=== PATIENT | female | born 1980 | race Caucasian/White ===

== ENCOUNTER → 2017-02-19 08:16 | Day surgery (SDC) | payer BC ==
[~2017-02-19 08:16] MED LIST: Buffered Lidocaine 0.9% SYRIN* 5 ML/SYR SYRINGE INTRADERM ONE; DOXYcycline IV* 100 MG in NS 0.9% 250 ML* 250 ML IVPB ONE
[2017-02-19 09:20] VITALS: BP 119/72
--- NOTE | 2017-02-19 09:21 | RAD ---
HISTORY: First trimester missed , evaluate for retained products of conception COMPARISONS: None TECHNIQUE: Multiple transverse and longitudinal ultrasound images were obtained of the pelvis using grayscale and color Doppler imaging using the endovaginal transducer. FINDINGS: UTERUS: The uterus measures 10.3 x 5 x 6.3 cm. The uterus is normal in shape, size, contour, and echotexture. ENDOMETRIUM: The endometrial stripe is heterogeneous. The endometrium measures 1.3 cm in thickness. There is no internal vascularity to suggest retained products of conception. CUL-DE-SAC: There is no free fluid within the cul-de-sac. RIGHT OVARY: The right ovary measures 4.7 x 2.5 x 3.3 cm. Several follicles are noted. Normal arterial and venous waveforms are identifiable within the ovary on spectral Doppler imaging. LEFT OVARY: The left ovary measures 2.8 x 1.5 x 3.1 cm. Several follicles noted. Normal arterial and venous waveforms are identifiable within the ovary on spectral Doppler imaging. BLADDER: The bladder is not well visualized. OTHER: None IMPRESSION: HETEROGENEOUS, 1.3 CM ENDOMETRIUM, WITHOUT INTERNAL VASCULARITY TO SUGGEST RETAINED PRODUCTS OF CONCEPTION
[2017-02-19 09:34] LABS: Hematocrit 36 % (35-47); Hemoglobin 12.4 g/dl (12.0-16.0); Mean Corpuscular HGB Conc 35 g/dl (31-36); Mean Corpuscular Hemoglobin 30 pg (27-31); Mean Corpuscular Volume 86 fL (80-97); Mean Platelet Volume 7 um3 (7.4-10.4); Red Blood Count 4.17 10^6/ul (4.0-5.4); Red Cell Distribution Width 12 % (10.5-15); White Blood Count 6.2 10^3/ul (3.5-10.8)
== END | disposition home or self-care (01) ==
LOC: SP 08:16 → OR 08:16
PROVIDERS: ATTEND Obstetrics & Gynecology
DX: O02.1 Missed abortion (principal); Z53.9 Procedure and treatment not carried out, unspecified reason
CPT/HCPCS: 36415; 76830; 85027; 86850; 86900; 86901

== ENCOUNTER 2017-11-15 06:10 | Emergency (ER) | payer BC ==
--- NOTE | 2017-11-15 07:06 | ED ---
Upper Extremity Pain - HPI Summary HPI Summary: 37-year-old female with past medical history of RA and hypothyroidism presents with left wrist swelling for the past 2 weeks. She said last 24 hours the pain and edema has gotten worse. No erythema. Has limited range of motion due to the swelling. He has been getting sharp pain up to elbow. No fevers. No recent bite or scratch. Denies any recent known tick exposure. She states she is used swelling but has never been this bad. No injury. pain is worse with movement. Has tried ice and heat without relief. She is 4 months . She has not taken anything for pain. She used to be on methotrexate but due to trying to get has not been on it a couple years. - History of Current Complaint Chief Complaint: EDExtremityUpper Stated Complaint: LT HAND PAIN Time Seen by Provider: 11/15/17 06:57 Hx Last Menstrual Period: 05/06/16 - Allergies/Home Medications Allergies/Adverse Reactions: Allergies Allergy/AdvReac Type Severity Reaction Status Date / Time Penicillins Allergy Rash Verified 11/15/17 06:15 PMH/Surg Hx/FS Hx/Imm Hx Endocrine/Hematology History: Reports: Hx Thyroid Disease - on meds pt. states controlled Musculoskeletal History: Reports: Hx Arthritis - RHEUMATOID ARTHRITIS NO MEDS, Hx Rheumatoid Arthritis Sensory History: Reports: Hx Contacts or Glasses - GLASSES Denies: Hx Hearing Aid Opthamlomology History: Reports: Hx Contacts or Glasses - GLASSES Psychiatric History: Denies: Hx Anxiety - Surgical History Surgery Procedure, Year, and Place: -08/2014. D AND C 2012 Hx Anesthesia Reactions: No Infectious Disease History: No Infectious Disease History: Denies: Traveled Outside the [place] in Last 30 Days - Family History Known Family History: Negative: Cardiac Disease, Hypertension, Diabetes - Social History Alcohol Use: None Substance Use Type: Reports: None Smoking Status (MU): Never Smoked Tobacco Have You Smoked in the Last Year: No Review of Systems Negative: Fever Negative: Chest Pain Negative: Shortness Of Breath Positive: Myalgia - left wrist, Edema - left wrist All Other Systems Reviewed And Are Negative: Yes Physical Exam Triage Information Reviewed: Yes Vital Signs On Initial Exam: Initial Vitals Temp Pulse Resp BP Pulse Ox 98.4 F 87 18 118/68 100 11/15/17 06:12 11/15/17 06:12 11/15/17 06:12 11/15/17 06:12 11/15/17 06:12 Vital Signs Reviewed: Yes Appearance: Positive: Well-Appearing Skin: Positive: Warm, Dry Head/Face: Positive: Normal Head/Face Inspection Eyes: Positive: Normal, Conjunctiva Clear ENT: Positive: Pharynx normal Respiratory/Lung Sounds: Positive: Clear to Auscultation, Breath Sounds Present Cardiovascular: Positive: Normal, RRR Musculoskeletal: Positive: Limited @ - left wrist, no pain with passive ROM, Edema Left - wrist, Other - good pulses, capillary refill<2 secs, no erythema, tenderness palmar aspect of left wrist with edema mostly over radius Neurological: Positive: Normal Psychiatric: Positive: Normal Diagnostics - Vital Signs Vital Signs Temp Pulse Resp BP Pulse Ox 11/15/17 06:12 98.4 F 87 18 118/68 100 - Laboratory Result Diagrams: 11/15/17 07:20 11/15/17 07:20 Lab Statement: Any lab studies that have been ordered have been reviewed, and results considered in the medical decision making process. Course/Dx - Course Course Of Treatment: 37-year-old female with past medical history of RA and hypothyroidism presents with left wrist swelling for the past 2 weeks. She said last 24 hours the pain and edema has gotten worse. No erythema. Has limited range of motion due to the swelling. He has been getting sharp pain up to elbow. No fevers. No recent bite or scratch. Denies any recent known tick exposure. She states she is used swelling but has never been this bad. No injury. pain is worse with movement. Has tried ice and heat without relief. She is 4 months . She hasn't taken anything for pain. On exam has edema noted to left wrist. Neurovascularly intact. full passive range that motion of the wrist. no erythema. wbc 8.6. crp 12 which is not super elevated. suspect less likely that is septic more likely arthritc as joint is not erythematous and only a little warm. patient decline xray due to being . told if it becomes red and hot or develops fevers to return to ED. will do short course of low dose steriods due to it being most likely an RA flare. discussed with patient the risk vs benefits due to being . patient understand and agrees with plan. - Diagnoses Differential Diagnosis/HQI/PQRI: Positive: Arthritis, Septic Arthritis, Sprain Provider Diagnoses: Left wrist pain Discharge - Sign-Out/Discharge Documenting (check all that apply): Discharge/Admit/Transfer - Discharge Plan Condition: Good Disposition: HOME Prescriptions: predniSONE TAB* [Deltasone 20 MG TAB*] 20 mg PO DAILY #4 tab Patient Education Materials: Arthritis (ED) Referrals: Katherine Yao MD [Primary Care Provider] - Additional Instructions: Take Tylenol every 6 hours as needed for pain take steroid once a day for 4 more days Apply ice, rest, elevate keep in anita as tolerated Follow up with primary care physician within 5 days Return to ED if develop any new or worsening symptoms - Billing Disposition and Condition Condition: GOOD Disposition: Home
[2017-11-15 07:32] LABS: ABS Basophils 0 10^3/ul (0-0.2); ABS Eosinophils 0.2 10^3/ul (0-0.6); ABS Lymphocytes 1.1 10^3/ul (1.0-4.8); ABS Monocytes 0.4 10^3/ul (0-0.8); ABS Neutrophils 6.9 10^3/ul (1.5-7.7); ABS Nucleated RBC 0 10^3/ul; Hematocrit 30 % (35-47); Hemoglobin 10.5 g/dl (12.0-16.0); Lymphocyte % 13.2 % (25-47); Mean Corpuscular HGB Conc 35 g/dl (31-36); Mean Corpuscular Hemoglobin 30 pg (27-31); Mean Corpuscular Volume 86 fL (80-97); Mean Platelet Volume 7.3 um3 (7.4-10.4); Nucleated Red Blood Cells % 0; Platelet Count 224 10^3/ul (150-450); Red Blood Count 3.48 10^6/ul (4.00-5.40); Red Cell Distribution Width 14 % (10.5-15); White Blood Count 8.6 10^3/ul (3.5-10.8)
[2017-11-15 07:47] LABS: EGFR Non-African American 103.1 (>60); Uric Acid 3.7 mg/dL (2.3-6.6)
[2017-11-15] MEDS ORDERED: predniSONE TAB* 10 MG PO ONE (07:55)
[2017-11-15 08:10] VITALS: BP 115/61
== END 2017-11-15 08:10 | disposition home or self-care (01) ==
LOC: ED 06:10
DX: M25.532 Pain in left wrist (principal); M06.9 Rheumatoid arthritis, unspecified; E03.9 Hypothyroidism, unspecified; Z88.0 Allergy status to penicillin; Z79.899 Other long term (current) drug therapy
CPT/HCPCS: 36415; 80053; 84443; 84550; 85025; 85652; 86140; 86617; 86618; 99283; J7512

== ENCOUNTER 2017-11-27 08:17 | Emergency (ER) | payer BC ==
--- NOTE | 2017-11-27 08:44 | ED ---
- HPI Summary HPI Summary: This pt is a 37 y/o female, currently 20 weeks , presenting to [facility] [place]/o worsening abdominal pain and vomiting since 04:00 this morning. Pt reports she had sharp stabbing pain in the middle of the night located on her mid abdomen. She notes she became clammy and vomited at 04:00 today. During triage in the ED today she had severe abd pain, became lightheaded and clammy. Currently pt notes lightheadedness. Denies nausea. Her OBGYN is at [facility]. Pt states she had an US yesterday and was told everything was normal. Her due date is April 19. During her first pt was in labor for 72 hours and had a . - History of Current Complaint Chief Complaint: EDNauseaVomitDiarrh Stated Complaint: VOMITING/20 WKS Time Seen by Provider: 11/27/17 08:35 Hx Obtained From: Patient Chief Complaint: Pain Onset/Duration: Started Hours Ago, Resolved Timing: Lasting Hours Severity: Severe Current Severity: None Pain Intensity: 0 Character: Sharp - stabbing Aggravating Factors: Nothing Alleviating Factors: Nothing Associated Signs and Symptoms: Positive: Vomiting, Other: - lightheadedness and clammy. Negative: Fever, Nausea - Assessment Hx Now: Yes Hx : 2 Hx Para: 1 - Additional Pertinent History Maternal Blood Type and Rh: B Positive - Allergies/Home Medications Allergies/Adverse Reactions: Allergies Allergy/AdvReac Type Severity Reaction Status Date / Time Penicillins Allergy Rash Verified 11/27/17 08:21 PMH/Surg Hx/FS Hx/Imm Hx Endocrine/Hematology History: Reports: Hx Thyroid Disease - on meds pt. states controlled Musculoskeletal History: Reports: Hx Arthritis - RHEUMATOID ARTHRITIS NO MEDS, Hx Rheumatoid Arthritis Sensory History: Reports: Hx Contacts or Glasses - GLASSES Denies: Hx Hearing Aid Opthamlomology History: Reports: Hx Contacts or Glasses - GLASSES Psychiatric History: Denies: Hx Anxiety - Surgical History Surgery Procedure, Year, and Place: -08/2014. D AND C 2012 Hx Anesthesia Reactions: No Infectious Disease History: No Infectious Disease History: Denies: Traveled Outside the [place] in Last 30 Days - Family History Known Family History: Negative: Cardiac Disease, Hypertension, Diabetes - Social History Alcohol Use: None Substance Use Type: Reports: None Smoking Status (MU): Never Smoked Tobacco Have You Smoked in the Last Year: No Review of Systems Constitutional: Other - clammy Negative: Fever, Chills Positive: Abdominal Pain, Vomiting. Negative: Nausea - currently denies Neurological: Other - POS: lightheadedness All Other Systems Reviewed And Are Negative: Yes Physical Exam - Summary Physical Exam Summary: Appearance: The patient is well-nourished in no acute distress and in no acute pain. Skin: The skin is warm and dry and skin color reflects adequate perfusion. HEENT: The head is normocephalic and atraumatic. The pupils are equal and reactive. The conjunctivae are clear and without drainage. Nares are patent and without drainage. Mouth reveals moist mucous membranes and the throat is without erythema and exudate. The external ears are intact. The ear canals are patent and without drainage. The tympanic membranes are intact. Neck: the neck is supple with full range of motion and non-tender. There are no carotid bruits. There is no neck vein distension. Respiratory: Chest is non-tender. Lungs are clear to auscultation and breath sounds are symmetrical and equal. Cardiovascular: Heart is regular rate and rhythm. There is no murmur or rub auscultated. There is no peripheral edema and pulses are symmetrical and equal. Abdomen: Gravid abdomen, non-tender. There are normal bowel sounds heard in all four quadrants and there is no organomegaly palpated. Musculoskeletal: There is no back tenderness noted. Extremities are non-tender with full range of motion. There is good capillary refill. There is no peripheral edema or calf tenderness elicited. Neurological: Patient is alert and oriented to person, place and time. The patient has symmetrical motor strength in all four extremities. Cranial nerves are grossly intact. Deep tendon reflexes are symmetrical and equal in all four extremities. Psychiatric: The patient has an appropriate affect and does not exhibit any anxiety or depression. - Physical Exam Triage Information Reviewed: Yes Vital Signs On Initial Exam: Initial Vitals Temp Pulse Resp BP Pulse Ox 96.9 F 114 24 77/51 97 11/27/17 08:19 11/27/17 08:19 11/27/17 08:19 11/27/17 08:19 11/27/17 08:19 Vital Signs Reviewed: Yes Diagnostics - Vital Signs Vital Signs Temp Pulse Resp BP Pulse Ox 07/10/18 08:19 96.9 F 114 24 77/51 97 - Laboratory Result Diagrams: 11/27/17 09:02 11/27/17 09:02 Lab Statement: Any lab studies that have been ordered have been reviewed, and results considered in the medical decision making process. - Ultrasound No standard instances Ultrasound Interpretation: No Acute Changes - US IMPRESSION: Single live intrauterine gestation at 19 weeks, [address] composite gestational age[address] Dr[address] Judd has reviewed this report. Ultrasound Interpretation Completed By: Radiologist Re-Evaluation - Re-Evaluation First Eval Re-Evaluation Time: 08:47 Comment: heart tone is 130-132 bpm obtained by OB nurse. Second Eval Re-Evaluation Time: 12:46 Comment: Reviewed lab and US results with the pt. Course/Dx - Course Course Of Treatment: Ms. Looney presented to the emergency department hypotensive and tachycardic. She had been complaining of abdominal pain accompanied by nausea and vomiting and diaphoresis since 0400 hrs. heart tones were hard to obtain an ultrasound was obtained which showed a viable fetus in no distress. Laboratory work showed a slight leukocytosis of 18.8 consistent with a a leukocytosis of accompanied by vomiting, and anemia of 11.6 hemoglobin consistent with , and normal liver enzymes and platelets. Once she laid down on the gurney she felt better and her vital signs improved she was no longer hypotensive or tachycardic. While she was here in the emergency department she had no further episodes of pain or vomiting. Not sure the etiology of what occurred. A placental abruption is not ruled out by ultrasound however she is much improved and the baby looks fine. There is no sign of HELLP syndrome. Biliary or other intestinal colic is a consideration. I recommended close follow-up with her FINISHING ROOM SUPERVISOR which is the midwives and spoke with Alisa Stein to arrange follow-up. - Diagnoses Provider Diagnoses: Nausea and vomiting in Discharge - Sign-Out/Discharge Documenting (check all that apply): Patient Departure - Discharge - Discharge Plan Condition: Stable Disposition: HOME Patient Education Materials: Nausea and Vomiting in (ED) Referrals: Katherine Yao MD [Primary Care Provider] - Additional Instructions: Please follow up with your OB in 2-3 days. RETURN TO THE ED FOR ANY WORSENING SYMPTOMS. - Billing Disposition and Condition Condition: STABLE Disposition: Home
[2017-11-27 09:20] LABS: ABS Basophils 0 10^3/ul (0-0.2); ABS Eosinophils 0.1 10^3/ul (0-0.6); ABS Lymphocytes 0.5 10^3/ul (1.0-4.8); ABS Monocytes 0.7 10^3/ul (0-0.8); ABS Neutrophils 17.5 10^3/ul (1.5-7.7); ABS Nucleated RBC 0 10^3/ul; Eosinophil % 0.3 % (0-6); Hematocrit 33 % (35-47); Hemoglobin 11.6 g/dl (12.0-16.0); Lymphocyte % 2.6 % (25-47); Mean Corpuscular HGB Conc 35 g/dl (31-36); Mean Corpuscular Hemoglobin 30 pg (27-31); Mean Corpuscular Volume 86 fL (80-97); Mean Platelet Volume 7.4 um3 (7.4-10.4); Nucleated Red Blood Cells % 0; Platelet Count 246 10^3/ul (150-450); Red Blood Count 3.89 10^6/ul (4.00-5.40); Red Cell Distribution Width 14 % (10.5-15); White Blood Count 18.8 10^3/ul (3.5-10.8)
--- NOTE | 2017-11-27 09:42 | RAD ---
HISTORY: pain bleeding. The gestational age by dates is: 18 weeks, 4 days COMPARISONS: None available at the time of dictation. TECHNIQUE: Multiple transverse and longitudinal ultrasound images were obtained of the gravid uterus using Grayscale, color Doppler, spectral Doppler, and M-mode Doppler imaging. FINDINGS: /PLACENTAL EVALUATION: Number of fetuses: Single Presentation: Breech cardiac activity: 144 bpm Gross motion: Observed Placenta position: Posterior Amniotic fluid volume: Normal BIOMETRY: Biparietal diameter: 4.47 cm 19 weeks, 4 days Head circumference: 16.61 cm 19 weeks, 3 days Abdominal circumference: 13.96 cm 19 weeks, 3 days Femur length: 3.31 cm 20 weeks, 3 days HC/AC: 1.19 Estimated weight: 312 grams, +/- 6 grams GESTATIONAL AGE: The composite gestational age is: 19 weeks, 5 days. The CATALINA is: April 18, 2015. This is concordant with age by dates. ANATOMY: anatomy was not assessed during this examination. CERVIX: The cervix is long and closed, without funneling.. The cervix measures 3.8 cm. OTHER: The right ovary measures 3.1 x 1.3 x 2 cm. The left ovary measures 3.8 x 2.2 x 2.2 cm. Normal arterial and venous waveforms are identifiable within the ovaries on spectral Doppler imaging. IMPRESSION: SINGLE LIVE INTRAUTERINE GESTATION AT 19 WEEKS, 5 DAYS BY COMPOSITE GESTATIONAL AGE
[2017-11-27 09:43] LABS: EGFR Non-African American 166.1 (>60)
[2017-11-27 11:25] LABS: Urine Appearance Cloudy; Urine Blood Negative (Negative); Urine Color Yellow; Urine Ketones 1+ (Negative); Urine Protein 1+(30 mg/dL) (Negative); Urine Specific Gravity 1.026 (1.010-1.030); Urine Urobilinogen Negative (Negative)
[2017-11-27 13:10] VITALS: BP 115/72
--- NOTE | 2017-11-29 08:25 | ED ---
Progress - Progress Note Progress Note: Patient's final urine culture reveals 10-25,000 strep group B in 1-10,000 normal zenaida. After reviewing the providers know, there is not appear to be concern for UTI or vaginal infection. The patient is 20 weeks and was advised to have close follow-up in the next 2-3 days with her JUNIOR BUSINESS ANALYST. Contacted patient to discuss these results and make sure she's had follow-up. Left message to call. Re-Evaluation - Re-Evaluation First Eval Re-Evaluation Time: 08:47 Comment: heart tone is 130-132 bpm obtained by OB nurse. Second Eval Re-Evaluation Time: 12:46 Comment: Reviewed lab and US results with the pt. Course/Dx - Course Course Of Treatment: Ms. Looney presented to the emergency department hypotensive and tachycardic. She had been complaining of abdominal pain accompanied by nausea and vomiting and diaphoresis since 0400 hrs. heart tones were hard to obtain an ultrasound was obtained which showed a viable fetus in no distress. Laboratory work showed a slight leukocytosis of 18.8 consistent with a a leukocytosis of accompanied by vomiting, and anemia of 11.6 hemoglobin consistent with , and normal liver enzymes and platelets. Once she laid down on the gurney she felt better and her vital signs improved she was no longer hypotensive or tachycardic. While she was here in the emergency department she had no further episodes of pain or vomiting. Not sure the etiology of what occurred. A placental abruption is not ruled out by ultrasound however she is much improved and the baby looks fine. There is no sign of HELLP syndrome. Biliary or other intestinal colic is a consideration. I recommended close follow-up with her JUNIOR BUSINESS ANALYST which is the midwives and spoke with Alisa Stein to arrange follow-up. - Diagnoses Provider Diagnoses: Nausea and vomiting in Discharge - Sign-Out/Discharge Documenting (check all that apply): Post-Discharge Follow Up - Discharge Plan Condition: Stable Disposition: HOME Patient Education Materials: Nausea and Vomiting in (ED) Referrals: Katherine Yao MD [Primary Care Provider] - Additional Instructions: Please follow up with your OB in 2-3 days. RETURN TO THE ED FOR ANY WORSENING SYMPTOMS. - Billing Disposition and Condition Condition: STABLE Disposition: Home
== END 2017-11-27 13:09 | disposition home or self-care (01) ==
LOC: ED 08:17
DX: O21.0 Mild hyperemesis gravidarum (principal); R42 Dizziness and giddiness; R23.1 Pallor; Z3A.19 19 weeks gestation of pregnancy; Z88.0 Allergy status to penicillin; E07.9 Disorder of thyroid, unspecified; M06.9 Rheumatoid arthritis, unspecified
CPT/HCPCS: 36415; 76815; 80053; 81003; 81015; 85025; 86140; 86850; 86900; 86901; 87077; 87086; 99283

== ENCOUNTER 2018-04-15 07:45 | Inpatient (IN) | payer BC ==
[~2018-04-15 07:45] MED LIST changes: -DOXYcycline IV* 100 MG in NS 0.9% 250 ML* 250 ML IVPB ONE; +Lactated Ringers 1000 ML Bag* 1,000 ML IV SCH; +Sodium Citrate/Citric Acid* 15 ML UDC PO ONE
[2018-04-15] MEDS ORDERED: ceFOXitin 2 GM IVPREMIX* 2 GM/50 ML BAG IVPB ONE (09:49)
[2018-04-15] MEDS ORDERED: Morphine PF AMP (0.5MG/ML)* 5 MG/10 ML AMP ONE (10:33)
[2018-04-15] MEDS ORDERED: Phenylephrine INJ* 10 MG/ML 1 ML VIAL (10 MG) ONE (10:34)
[2018-04-15] MEDS ORDERED: Bupivacaine-MPF SPINAL* 7.5 MG/ML - 2ML AMP ONE (10:34)
[2018-04-15] MEDS ORDERED: Lidocaine 2% PF * 5 ML VIAL ONE (10:34)
[2018-04-15] MEDS ORDERED: EPHEDrine (Pressors)* 50 MG/ML VIAL ONE (11:00)
[2018-04-15] MEDS ORDERED: OXYTOCIN* 10 UNITS/ML 1 ML VIAL ONE (11:04)
[2018-04-15] MEDS ORDERED: Ondansetron INJ* 2 MG/ML VIAL ONE (11:04)
[2018-04-15] MEDS ORDERED: Dexamethasone IV* 4 MG/ML 1 ML (4 MG) ONE (11:04)
[2018-04-15] MEDS ORDERED: Naloxone* 0.4 MG/ML 1 ML VIAL IV PRN ×2 (11:26→11:28)
[2018-04-15] MEDS ORDERED: DiMENhydriNATE IV* 50 MG/ML VIAL IV PUSH PRN ×2 (11:26→11:28)
[2018-04-15] MEDS ORDERED: Acetaminophen IV 1GM/100ML * 1,000 MG/100 ML VIAL IVPB ONE (11:26)
[2018-04-15] MEDS ORDERED: fentaNYL* 50 MCG/ML 2 ML VIAL (100 MCG VIAL) IV PRN (11:26)
[2018-04-15] MEDS ORDERED: oxyCODONE TAB* 5 MG TAB PO PRN (11:26)
[2018-04-15] MEDS ORDERED: Ketorolac INJ* 30 MG/ML 1 ML VIAL IV PRN (11:26)
[2018-04-15] MEDS ORDERED: Nalbuphine* 10 MG/ML 1 ML VIAL IV PRN (11:28)
[2018-04-15] MEDS ORDERED: Ondansetron INJ* 2 MG/ML VIAL IV PRN (11:28)
[2018-04-15] MEDS ORDERED: Glycerin ADULT SUPP PR PRN (11:54)
[2018-04-15] MEDS ORDERED: Zolpidem TAB* 5 MG PO PRN (11:54)
[2018-04-15] MEDS ORDERED: Witch Hazel PAD* JAR TOPICAL PRN (11:54)
[2018-04-15] MEDS ORDERED: Dibucaine 1% 28.35 GM TUBE PR PRN (11:54)
[2018-04-15] MEDS ORDERED: Lactated Ringers 1000 ML Bag* 1,000 ML IV SCH (12:00)
[2018-04-15] MEDS ORDERED: Oxytocin in LR* 20 UNITS/1,000 ML BAG IVPB SCH (12:00)
[2018-04-15] MEDS ORDERED: Acetaminophen TAB* 325 MG PO SCH (12:00)
[2018-04-15] MEDS: Ketorolac INJ* 30 MG/ML 1 ML VIAL IV SCH ×2 (12:22→18:06)
[2018-04-15] MEDS ORDERED: Oxytocin in LR* 20 UNITS/1,000 ML BAG IVPB ONE (13:05)
[2018-04-15] MEDS: oxyCODONE TAB* 5 MG TAB PO PRN ×2 (15:12→20:20)
[2018-04-15] MEDS: Simethicone TAB* 80 MG TAB.CHEW PO SCH ×3 (18:08→20:21)
[2018-04-15] MEDS: Docusate CAP* 100 MG PO SCH ×2 (18:44→20:21)
[2018-04-15] MEDS: Acetaminophen TAB* 325 MG PO SCH (20:20)
[2018-04-16] MEDS: Ketorolac INJ* 30 MG/ML 1 ML VIAL IV SCH ×2 (00:21→06:07)
[2018-04-16] MEDS: Acetaminophen TAB* 325 MG PO SCH (03:52)
[2018-04-16] MEDS: oxyCODONE TAB* 5 MG TAB PO PRN (03:53)
--- NOTE | 2018-04-16 04:39 | OP ---
DATE OF OPERATION: 04/15/18 - ROOM #117 DATE OF : 82 SURGEON: Vitor Rodriguez MD CANE PUSHER: Anahi Wilcox CNM ANESTHESIA: Spinal. PRE-OP DIAGNOSIS: Previous section. POST-OP DIAGNOSIS: Previous section. OPERATIVE PROCEDURE: Low transverse section. ESTIMATED BLOOD LOSS: 600 cc. FINDINGS: Include a viable female. Apgars 8 and 9, weight was 8 pounds 1 ounces. Normal-appearing uterus, fallopian tubes, and ovaries. There was some scarring cephalad pulling the bladder cephalad. DESCRIPTION OF PROCEDURE: The patient identified, procedure identified as a low transverse section. The patient was taken to the operating room, prepped and draped in the usual fashion in the left lateral recumbent position under spinal anesthesia. A Pfannenstiel incision was made through the old incision, carried down through fat, fascia and peritoneum. A bladder flap was created via sharp and blunt dissection. Transverse incision was made in the lower uterine segment, extended laterally using blunt dissection. The above was delivered through the incision with ease. The cord was doubly clamped and cut. The infant was handed to the awaiting movie stunt performer. Cord blood was obtained. Placenta delivered spontaneously. The uterus was wiped out with a wet lap sponge. The uterine incision was then closed using 0 Polysorb in a running fashion. Good hemostasis was verified. A second layer was used to imbricate the first layer. Good hemostasis again verified in the intraperitoneal cavity. Copious irrigation was utilized and suctioned out. The peritoneum was then closed using 3-0 Polysorb with running fashion. Good hemostasis see in the subrectus layers. Fascia was closed using 0 Polysorb in a running fashion. A 3-0 Polysorb was used to close the space in the subcutaneous tissue and the skin was closed with 4-0 Monocryl in a subcuticular fashion and Steri-Strips were applied. All sponge and instrument counts were correct. The patient returned to the recovery room in stable condition. [id number]/[facility] #: [id number] [facility]
[2018-04-16] MEDS: Levothyroxine TAB* 75 MCG TAB PO SCH (06:08)
[2018-04-16] MEDS: Levothyroxine TAB* 150 MCG TAB PO SCH (06:08)
[2018-04-16 06:22] LABS: ABS Basophils 0.1 10^3/ul (0-0.2); ABS Eosinophils 0.1 10^3/ul (0-0.6); ABS Lymphocytes 1.5 10^3/ul (1.0-4.8); ABS Neutrophils 12.5 10^3/ul (1.5-7.7); ABS Nucleated RBC 0 10^3/ul; Eosinophil % 0.4 %; Hematocrit 24 % (35-47); Hemoglobin 7.9 g/dl (12.0-16.0); Lymphocyte % 10.1 %; Mean Corpuscular HGB Conc 33 g/dl (31-36); Mean Corpuscular Hemoglobin 26 pg (27-31); Mean Corpuscular Volume 78 fL (80-97); Nucleated Red Blood Cells % 0.1; Platelet Count 240 10^3/ul (150-450); Red Blood Count 3.06 10^6/ul (4.00-5.40); Red Cell Distribution Width 16 % (10.5-15); White Blood Count 15.2 10^3/ul (3.5-10.8)
[2018-04-16] MEDS: Docusate CAP* 100 MG PO SCH ×3 (08:32→20:34)
[2018-04-16] MEDS: Ferrous Gluconate TAB* 324 MG TAB PO SCH ×2 (08:33→20:34)
[2018-04-16] MEDS: Simethicone TAB* 80 MG TAB.CHEW PO SCH ×4 (08:33→20:34)
[2018-04-16] MEDS ORDERED: Acetaminophen TAB* 325 MG PO PRN (12:00)
[2018-04-16] MEDS: oxyCODONE/Acetamin 5/325 MG* TAB PO PRN ×3 (12:10→23:04)
[2018-04-16] MEDS: Ibuprofen TAB* 600 MG PO PRN ×2 (14:40→20:33)
[2018-04-17] MEDS: Ibuprofen TAB* 600 MG PO PRN ×3 (03:06→17:36)
[2018-04-17] MEDS: oxyCODONE/Acetamin 5/325 MG* TAB PO PRN ×4 (03:06→20:25)
[2018-04-17] MEDS: Levothyroxine TAB* 150 MCG TAB PO SCH (06:22)
[2018-04-17] MEDS: Levothyroxine TAB* 75 MCG TAB PO SCH (06:22)
[2018-04-17] MEDS: Simethicone TAB* 80 MG TAB.CHEW PO SCH ×4 (08:47→20:25)
[2018-04-17] MEDS: Docusate CAP* 100 MG PO SCH ×3 (08:47→20:25)
[2018-04-17] MEDS: Ferrous Gluconate TAB* 324 MG TAB PO SCH ×2 (08:47→20:25)
[2018-04-18] MEDS: oxyCODONE/Acetamin 5/325 MG* TAB PO PRN ×2 (01:07→05:12)
[2018-04-18] MEDS: Ibuprofen TAB* 600 MG PO PRN ×2 (01:08→09:18)
[2018-04-18] MEDS: Levothyroxine TAB* 150 MCG TAB PO SCH (05:12)
[2018-04-18] MEDS: Levothyroxine TAB* 75 MCG TAB PO SCH (05:12)
[2018-04-18 08:12] VITALS: BP 118/62
[2018-04-18] MEDS: Simethicone TAB* 80 MG TAB.CHEW PO SCH (09:19)
[2018-04-18] MEDS: Docusate CAP* 100 MG PO SCH (09:19)
== END 2018-04-18 14:00 | disposition home or self-care (01) | DRG 540 ==
LOC: MCHOB 09:07
PROVIDERS: ADMIT Obstetrics & Gynecology; ATTEND Obstetrics & Gynecology
PROC: 4A1HXCZ Monitoring of Products of Conception, Cardiac Rate, External Approach (ICD-10-PCS; 2018-04-15)
PROC: 10D00Z1 Extraction of Products of Conception, Low, Open Approach (ICD-10-PCS; principal; 2018-04-15 11:00)
DX: O34.211 Maternal care for low transverse scar from previous cesarean delivery (principal); O99.284 Endocrine, nutritional and metabolic diseases complicating childbirth; E03.9 Hypothyroidism, unspecified; O99.824 Streptococcus B carrier state complicating childbirth; O90.81 Anemia of the puerperium; Z3A.39 39 weeks gestation of pregnancy; Z37.0 Single live birth; Z88.0 Allergy status to penicillin; Z87.891 Personal history of nicotine dependence
CPT/HCPCS: 36415; 85025; A9270-GY; J0694; J1100; J1885; J2405; J2590

== ENCOUNTER 2019-02-06 08:25 | Emergency (ER) | payer BC ==
[2019-02-06 08:38] VITALS: BP 123/65
--- NOTE | 2019-02-06 09:57 | UC ---
Ear Complaint HPI - HPI Summary HPI Summary: 38-year-old female who awakened this morning with a right earache and some right jaw pain. She has a history of rheumatoid arthritis however she does not take any regular treatment at this time although it has been suggested to her by her specialist. She denies any recent cold symptoms. No fever or chills. No history of TMJ. - History of Current Complaint Chief Complaint: UCEar Stated Complaint: EAR PAIN JAW PAIN Time Seen by Provider: 02/06/19 09:49 Hx Obtained From: Patient Hx Last Menstrual Period: 01/05/19 ?: No Onset/Duration: Gradual Onset Severity Initially: Mild Severity Currently: Mild Pain Intensity: 4 Aggravating Factors: Nothing Alleviating Factors: Nothing - Allergies/Home Medications Allergies/Adverse Reactions: Allergies Allergy/AdvReac Type Severity Reaction Status Date / Time Penicillins Allergy Rash Verified 02/06/19 08:38 PMH/Surg Hx/FS Hx/Imm Hx Previously Healthy: Yes - patient has history of rheumatoid arthritis. - Surgical History Surgical History: Yes Surgery Procedure, Year, and Place: -08/2014. D AND C 2012 - Family History Known Family History: Negative: Cardiac Disease, Hypertension, Diabetes - Social History Lives: With Family Alcohol Use: Occasionally Substance Use Type: Marijuana Substance Use Comment - Amount & Last Used: occaasional Smoking Status (MU): Never Smoked Tobacco Have You Smoked in the Last Year: No Household Exposure Type: Cigarettes - Immunization History Most Recent Influenza Vaccination: 03/07/18 Most Recent Tetanus Shot: 05/22/14 Most Recent Pneumonia Vaccination: none Review of Systems All Other Systems Reviewed And Are Negative: Yes ENT: Positive: Ear Ache - Right earache as well as right jaw pain. Is Patient Immunocompromised?: No Physical Exam Triage Information Reviewed: Yes Appearance: Well-Appearing, No Pain Distress, Well-Nourished Vital Signs: Initial Vital Signs Temp 98.1 F 02/06/19 08:33 Pulse 84 02/06/19 08:33 Resp 18 02/06/19 08:33 BP 123/65 02/06/19 08:33 Pulse Ox 99 02/06/19 08:33 Vital Signs Reviewed: Yes Eyes: Positive: Conjunctiva Clear ENT: Positive: Hearing grossly normal, Pharynx normal, TMs normal, Uvula midline , Other - No TMJ or pain clicking with opening and closing of mouth. Dental Exam: Normal Neck: Positive: Supple, Nontender, No Lymphadenopathy Respiratory: Positive: Lungs clear, Normal breath sounds, No respiratory distress, No accessory muscle use Cardiovascular: Positive: RRR, No Murmur, Pulses Normal, Brisk Capillary Refill Musculoskeletal: Positive: Strength Intact, ROM Intact Neurological: Positive: Alert, Muscle Tone Normal Psychological: Positive: Normal Response To Family, Age Appropriate Behavior Skin Exam: Normal Ear Complaint Course/Dx - Course Course Of Treatment: Patient is comfortable here. I don't find any evidence of otitis externa or TMJ. The patient thinks this may be her rheumatoid arthritis. She is to follow -up with her primary care provider but try some heat to the area and ibuprofen for pain. - Differential Dx/Diagnosis Provider Diagnosis: Otalgia, right ear Discharge ED - Sign-Out/Discharge Documenting (check all that apply): Patient Departure All imaging exams completed and their final reports reviewed: No Studies - Discharge Plan Condition: Good Disposition: HOME Patient Education Materials: Earache (ED) Referrals: Katherine Yao MD [Primary Care Provider] - Additional Instructions: May apply heat to the sore area intermittently throughout the day. Take ibuprofen 600 mg every 8 hours with food over the next 2-3 days. Follow-up with your primary care provider or your specialist as needed if no improvement. - Billing Disposition and Condition Condition: GOOD Disposition: Home
== END 2019-02-06 10:22 | disposition home or self-care (01) ==
LOC: UCEAST 08:25
DX: H92.01 Otalgia, right ear (principal); M06.9 Rheumatoid arthritis, unspecified; Z88.0 Allergy status to penicillin
CPT/HCPCS: 99211; G0463

== ENCOUNTER 2019-02-26 19:23 | Emergency (ER) | payer BC ==
[2019-02-26] MEDS ORDERED: Ibuprofen TAB* 600 MG PO ONE (23:20)
[2019-02-26] MEDS ORDERED: Lidocaine/Epineph/Tetraca GEL* 3 ML GEL IN SYR TOPICAL ONE (23:23)
--- NOTE | 2019-02-26 23:24 | ED ---
Skin Complaint - HPI Summary HPI Summary: Patient complains of hard lumpy rash to bilateral legs starting this morning. Denies prior history of same rash. Denies new lotions, soaps, detergents, foods , any other symptoms, pain or injury. History of RA, hypothyroid. No new medications. - History of Current Complaint Chief Complaint: EDRashSkinAbscess Time Seen by Provider: 02/26/19 21:12 Stated Complaint: BUMPS ON BOTH LEGS PER PT Hx Obtained From: Patient Hx Last Menstrual Period: 01/05/19 Onset/Duration: Started Hours Ago Skin Exposure Onset/Duration: Hours Ago Timing: Constant Onset Severity: Moderate Current Severity: Moderate Pain Intensity: 0 Pain Scale Used: 0-10 Numeric Skin Location: Discrete, Leg Aggravating Symptom(s): Touch Alleviating Symptom(s): Unknown Associated Signs & Symptoms: Rash - Allergy/Home Medications Allergies/Adverse Reactions: Allergies Allergy/AdvReac Type Severity Reaction Status Date / Time Penicillins Allergy Rash Verified 02/06/19 08:38 Home Medications: Home Medications NK [No Home Medications Reported] 02/27/19 [History Confirmed 02/27/19] PMH/Surg Hx/FS Hx/Imm Hx Endocrine/Hematology History: Reports: Hx Thyroid Disease - on Levothyroxine pt. states controlled Denies: Hx Diabetes Cardiovascular History: Denies: Hx Hypertension Respiratory History: Denies: Hx Asthma History: Denies: Hx Kidney Infection, Other Problems/Disorders Musculoskeletal History: Reports: Hx Arthritis - RHEUMATOID ARTHRITIS NO MEDS, Hx Rheumatoid Arthritis Sensory History: Reports: Hx Contacts or Glasses - GLASSES Denies: Hx Hearing Aid Opthamlomology History: Reports: Hx Contacts or Glasses - GLASSES EENT History: Denies: Hx Deafness Neurological History: Denies: Hx Dementia Psychiatric History: Denies: Hx Anxiety, Hx Depression, Other Psychiatric Issues/Disorders - Surgical History Surgery Procedure, Year, and Place: -08/2014. D AND C 2012 Hx Anesthesia Reactions: No Infectious Disease History: No Infectious Disease History: Denies: Traveled Outside the [place] in Last 30 Days - Family History Known Family History: Negative: Cardiac Disease, Hypertension, Diabetes - Social History Alcohol Use: Occasionally Substance Use Type: Reports: Marijuana Substance Use Comment - Amount & Last Used: occaasional Smoking Status (MU): Never Smoked Tobacco Have You Smoked in the Last Year: No Review of Systems Constitutional: Negative Eyes: Negative ENT: Negative Cardiovascular: Negative Respiratory: Negative Gastrointestinal: Negative Genitourinary: Negative Musculoskeletal: Negative Skin: Other Positive: Rash Neurological: Negative Psychological: Normal All Other Systems Reviewed And Are Negative: Yes Physical Exam - Summary Physical Exam Summary: Several satellite lesions on bilateral lower extremities involving hard bumps and erythema. No extra warmth, apical abscess, purulent drainage. Rash is nonpruritic. Triage Information Reviewed: Yes Vital Signs On Initial Exam: Initial Vitals Temp Pulse Resp BP Pulse Ox 99.1 F 108 16 141/89 100 02/26/19 19:28 02/26/19 19:28 02/26/19 19:28 02/26/19 19:28 02/26/19 19:28 Vital Signs Reviewed: Yes Appearance: Positive: Well-Appearing Skin: Positive: Warm Head/Face: Positive: Normal Head/Face Inspection Eyes: Positive: Normal ENT: Positive: Normal ENT inspection Neck: Positive: Supple Respiratory/Lung Sounds: Positive: Clear to Auscultation Cardiovascular: Positive: Normal Abdomen Description: Positive: Nontender Musculoskeletal: Positive: Normal Neurological: Positive: Normal Psychiatric: Positive: Normal AVPU Assessment: Alert - [place] Coma Scale Best Eye Response: 4 - Spontaneous Best Motor Response: 6 - Obeys Commands Best Verbal Response: 5 - Oriented Coma Scale Total: 15 Procedures - Sedation Patient Received Moderate/Deep Sedation with Procedure: No Diagnostics - Vital Signs Vital Signs Temp Pulse Resp BP Pulse Ox 02/26/19 22:00 16 02/26/19 19:28 99.1 F 108 16 141/89 100 - Laboratory Result Diagrams: 02/26/19 23:39 02/26/19 23:39 Lab Statement: Any lab studies that have been ordered have been reviewed, and results considered in the medical decision making process. Course/Dx - Course Course Of Treatment: Patient complains of hard lumpy rash to bilateral legs starting this morning. Denies prior history of same rash. Denies new lotions, soaps, detergents, foods, any other symptoms, pain or injury. History of RA, hypothyroid. No new medications. Vital signs within normal limits. Patient examined by myself and also by attending Dr. Sanchez. 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 Patient advised to take NSAIDs and follow-up with dermatology. - Diagnoses Provider Diagnoses: Rash Discharge ED - Sign-Out/Discharge Documenting (check all that apply): Patient Departure - Discharge Plan Condition: Stable Disposition: HOME Patient Education Materials: Acute Rash (ED) Referrals: Katherine Yao MD [Primary Care Provider] - Monserrat Diaz MD [Medical Doctor] - Additional Instructions: Alternate ibuprofen 600 mg with Tylenol 650 mg every 3 hours for pain as needed. Follow-up with dermatology Dr Diaz for further evaluation of rash. Return to the ED for any worsening symptoms. - Billing Disposition and Condition Condition: STABLE Disposition: Home
[2019-02-26 23:45] LABS: ABS Eosinophils 0.2 10^3/ul (0-0.6); ABS Lymphocytes 1.1 10^3/ul (1.0-4.8); ABS Monocytes 0.5 10^3/ul (0-0.8); ABS Neutrophils 5.4 10^3/ul (1.5-7.7); Eosinophil % 2.8 %; Hematocrit 35 % (35-47); Lymphocyte % 14.8 %; Mean Corpuscular HGB Conc 34 g/dL (31-36); Mean Corpuscular Hemoglobin 29 pg (27-31); Mean Corpuscular Volume 86 fL (80-97); Mean Platelet Volume 7.1 fL (7.4-10.4); Platelet Count 364 10^3/uL (150-450); Red Blood Count 4.07 10^6 /uL (3.70-4.87); Red Cell Distribution Width 13 % (10-15); White Blood Count 7.2 10^3/uL (3.5-10.8)
[2019-02-27 00:04] LABS: Albumin 4.1 g/dL (3.2-5.2); Albumin/Globulin Ratio 1.3 (1-3); BUN/Creatinine Ratio 12.9 (8-20); C Reactive Protein 16.07 mg/L (<8.01); Calcium 9.6 mg/dL (8.6-10.3); EGFR African American 74.6 (>60); EGFR Non-African American 61.7 (>60); Globulin 3.2 g/dL (2-4); Potassium 3.8 mmol/L (3.5-5.0); Total Bilirubin 1.2 mg/dL (0.2-1.0); Total Protein 7.3 g/dL (6.4-8.9)
[2019-02-27 00:32] LABS: Rapid Strep Molecular Negative (Negative)
[2019-02-27 01:15] LABS: Erythrocyte Sed Rate 52 mm/Hr (0-19)
[2019-02-27 01:55] VITALS: BP 101/66
== END 2019-02-27 01:54 | disposition home or self-care (01) ==
LOC: ED 19:23
DX: R21 Rash and other nonspecific skin eruption (principal); E03.9 Hypothyroidism, unspecified
CPT/HCPCS: 36415; 71046; 80053; 85025; 85652; 86140; 87651; 99282; A9270-GY